=== PATIENT | male | born 1995 | race Caucasian/White ===

== ENCOUNTER 2018-11-06 16:30 | Emergency (ER) | payer SELFPAY ==
[2018-11-06] MEDS ORDERED: NORMAL SALINE 1000 ML 1,000 ML IV ONE (16:50)
[2018-11-06] MEDS ORDERED: ACETAMINOPHEN 325 MG TABLET PO ONE (16:50)
--- NOTE | 2018-11-06 16:51 | ER Document Report ---
ED Medical Screen (RME) - General Chief Complaint: Headache Stated Complaint: HEADACHE Time Seen by Provider: 11/06/18 16:46 Primary Care Provider: SUNIL HUBER [Primary Care Provider] - Follow up as needed Mode of Arrival: Ambulatory Information source: Patient Notes: Patient presents complaining of severe headache that started this morning. Patient states that headache is gradually gotten worse throughout the day. Patient reports nausea and vomiting x5 episodes. Patient denies any history of headaches. Patient denies any head injury. Patient denies any fever or history of IV drug use. I have greeted and performed a rapid initial assessment of this patient. A comprehensive ED assessment and evaluation of the patient, analysis of test results and completion of the medical decision making process will be conducted by additional ED providers. TRAVEL OUTSIDE OF THE [place] IN LAST 30 DAYS: No - Related Data Allergies/Adverse Reactions: No Known Allergies Allergy (Verified 11/06/18 16:30) Physical Exam - Neurological Neuro grossly intact: Yes Cognition: Normal Perry Coma Scale Eye Opening: Spontaneous Perry Coma Scale Verbal: Oriented Annamaria Coma Scale Motor: Obeys Commands Perry Coma Scale Total: 15 Doctor's Discharge - Discharge Referrals: SUNIL HUBER [Primary Care Provider] - Follow up as needed
[2018-11-06] MEDS ORDERED: DIPHENHYDRAMINE HCL 50 MG/ML VIAL IV ONE (17:43)
[2018-11-06] MEDS ORDERED: PROCHLORPERAZINE EDISYLATE INJ 10 MG/2 ML VIAL IV ONE (17:43)
[2018-11-06 17:51] VITALS: BP 131/74
--- NOTE | 2018-11-06 17:53 | ER Document Report ---
ED General - General Chief Complaint: Headache Stated Complaint: HEADACHE Time Seen by Provider: 11/06/18 16:46 Primary Care Provider: SUNIL HUBER [NO LOCAL MD] - Follow up as needed Mode of Arrival: Ambulatory TRAVEL OUTSIDE OF THE [place] IN LAST 30 DAYS: No - HPI Notes: Patient is a 23-year-old male no significant past medical history who presents complaining of severe headache that began at 9 AM when he woke up. Patient states that the pain was at maximal intensity from the start. Patient states that he has never had a headache like this before and this is the worst headache that he has experienced. He does have associated nausea/vomiting and light sensitivity. No recent illness. Patient states that he does have some stiffness to his neck as well. Denies drug allergies. Patient does admit to smoking but denies IV drug abuse. Denies any fever, head injury, changes in vision/speech/mentation/hearing, URI, sore throat, chest pain, palpitations, syncope, cough, shortness of breath, wheeze, dyspnea, abdominal pain, diarrhea, urinary retention, dysuria, hematuria, loss of control of bowel or bladder, numbness/tingling, saddle anesthesia, muscle paralysis/weakness, or rash. - Related Data Allergies/Adverse Reactions: No Known Allergies Allergy (Verified 11/06/18 16:30) Past Medical History - General Information source: Patient - Social History Smoking Status: Current Every Day Smoker Family History: Reviewed & Not Pertinent Patient has suicidal ideation: No Patient has homicidal ideation: No Review of Systems - Review of Systems -: Yes All other systems reviewed and negative Physical Exam - Vital signs Vitals: Temp Pulse Resp BP Pulse Ox 98.7 F 87 18 131/74 H 99 11/06/18 16:45 11/06/18 16:45 11/06/18 16:45 11/06/18 16:45 11/06/18 16:45 - Notes Notes: PHYSICAL EXAMINATION: GENERAL: Well-appearing, well-nourished and in no acute distress. A&Ox4. Answers questions appropriately. HEAD: Atraumatic, normocephalic. Non-tender. EYES: Pupils equal round and reactive to light, extraocular movements intact, sclera anicteric, conjunctiva are normal. No nystagmus. vis cast intact. ENT: EAC clear b/l. TM's intact b/l without erythema, fluid, or perforation. Nares patent and without discharge. oropharynx clear without exudates. No tonsilar hypertrophy or erythema. Moist mucous membranes. No sinus tenderness. NECK: FROM. + mild rigidity noted. + mild kernig. LUNGS: Breath sounds clear to auscultation bilaterally and equal. No wheezes rales or rhonchi. HEART: Regular rate and rhythm without murmurs, rubs, gallops. ABDOMEN: Soft, nontender, nondistended abdomen. No guarding, no rebound. Normal bowel sounds present. No CVA tenderness bilaterally. Musculoskeletal: Ext b/l: FROM to passive/active. Strength 5+/5. No deficits noted. No bony tenderness of extremities. Extremities: No cyanosis, clubbing, or edema b/l. Peripheral pulses 2+. Capillary refill less than 2 seconds. NEUROLOGICAL: NIH 0. GCS 15. Cranial nerves grossly intact. Normal speech, n ormal gait. Normal sensory, motor exams. Reflexes 2+ b/l. JAIME's negative. Pronator drift negative. Heel/joyce, finger/nose wnl. PSYCH: Normal mood, normal affect. SKIN: Warm, Dry, normal turgor, no rashes or lesions noted. Course - Re-evaluation Re-evalutation: 11/06/18 18:[address] Anderson as I have concern that he may need a LP performed due to the severe nature of the HAQUE, neck stiffness, and mildly elevated wbc and she is in agreement. 11/06/18 19:07 I have had multiple discussions with the patient trying to obtain consent to perform a lumbar puncture. My main concerns are meningitis and subarachnoid hemorrhage, but are not limited to these. I have thoroughly reviewed the risk and benefit including worsening symptoms, brain damage, debilitation, and even . I have reviewed the procedure in full and also discussed meeting with any anxiety with medications prior. Patient is still very adamant that he does not want this performed. Patient states that his headache has completely resolved. Vitals are otherwise acceptable without significant tachycardia, tachypnea, hypoxia. He is afebrile and well-hydrated. PE is otherwise unremarkable for any focal neurological deficits, but he did have some mild neck stiffness noted with a positive Kernig. This entire discussion was witnessed by his girlfriend who is sitting at the bedside. See lab results which did show a white count at 12.9. Other labs unremarkable. Reviewed with the patient that he is to return at anytime with worsening symptoms, for reassurance, or for any other reason if needed. I would like him to follow-up with a family doctor in the next 1-2 days if possible. Patient is in agreement. - Vital Signs Vital signs: Temp Pulse Resp BP Pulse Ox 98.7 F 87 18 131/74 H 99 11/06/18 16:45 11/06/18 16:45 11/06/18 16:45 11/06/18 16:45 11/06/18 16:45 - Laboratory Result Diagrams: 11/06/18 17:23 11/06/18 17:23 Laboratory results interpreted by me: 11/06/18 11/06/18 17:23 17:23 WBC 12.9 H RBC 4.21 L Hgb 13.4 L Absolute Neuts (auto) 9.1 H Chloride 97 L Discharge - Discharge Clinical Impression: Headache Qualifiers: Headache type: unspecified Headache chronicity pattern: acute headache Intractability: not intractable Qualified Code(s): R51 - Headache Condition: Stable Disposition: HOME, SELF-CARE Instructions: Headache ([facility]) Additional Instructions: As thoroughly reviewed with you and your significant other, you are electing to decline a procedure known as a lumbar puncture to further evaluate the cause of your headache and neck stiffness. The lumbar puncture would be very beneficial to evaluate further for any meningitis or even subarachnoid hemorrhage which is a significant brain bleed as well as other etiologies. Both conditions can lead to but not limited to worsening pain/debilitation, brain damage, and even . Do not hesitate to return for any reason at all whether it be reassurance, worsening symptoms, or for reevaluation. Rest, Ice/cool compress Tylenol as needed Light stretches daily Strength exercises as able Moist heat and massage may help F/u with your PCP in 1-2 days for a recheck Consider consult(s) with Neurology for ongoing/worsening symptoms Return to the ED with any worsening symptoms and/or development of fever, worsening headache/neck pain, changes in behavior/mentation/vision/speech, chest pain, palpitations, syncope, shortness of breath, trouble breathing, abdominal pain, n/v/d, blood in stool/urine, loss of control of bowel/bladder, urinary retention, muscle weakness/paralysis, saddle anesthesia, numbness/tingling, or other worsening symptoms that are concerning to you. Forms: Smoking Cessation Education, Elevated Blood Pressure Referrals: DIONNE FLORES MD [NO LOCAL MD] - Follow up as needed
--- NOTE | 2018-11-06 17:59 | RADIOLOGY REPORT (SQ) ---
EXAM DESCRIPTION: CT HEAD WITHOUT COMPLETED DATE/TIME: 11/06/2018 5:32 pm REASON FOR STUDY: severe HAQUE COMPARISON: None. TECHNIQUE: Axial images acquired through the brain without intravenous contrast. Images reviewed wi th bone, brain and subdural windows. Additional sagittal and coronal reconstructions were generated. Images stored on PACS. All CT scanners at this facility use dose modulation, iterative reconstruction, and/or weight based d osing when appropriate to reduce radiation dose to as low as reasonably achievable (ALARA). [facility]: Dose Right [facility]: CareDose [facility]: Dose Right [facility]: Teradose 4D [facility]: TapFit RADIATION DOSE: CT Rad equipment meets quality standard of care and radiation dose reduction techniq ues were employed. CTDIvol: 53.2 mGy. DLP: 964 mGy-cm. mGy. LIMITATIONS: None. FINDINGS: VENTRICLES: Normal size and contour. CEREBRUM: No masses. No hemorrhage. No midline shift. No evidence for acute infarction. Normal gra y/white matter differentiation. No areas of low density in the white matter. CEREBELLUM: No masses. No hemorrhage. No alteration of density. No evidence for acute infarction. EXTRAAXIAL SPACES: No fluid collections. No masses. ORBITS AND GLOBE: No intra- or extraconal masses. Normal contour of globe without masses. CALVARIUM: No fracture. PARANASAL SINUSES: No fluid or mucosal thickening. SOFT TISSUES: No mass or hematoma. OTHER: No other significant finding. IMPRESSION: NORMAL BRAIN CT WITHOUT CONTRAST. EVIDENCE OF ACUTE STROKE: NO. COMMENT: Quality ID # [id number]: Final reports with documentation of one or more dose reduction techniques (e.g., Automated exposure control, adjustment of the mA and/or kV according to patient size, use of iterative reconstruction technique) TECHNICAL DOCUMENTATION: JOB ID: [id number] [employer]- All Rights Reserved Reading location - IP/workstation name: [email or web address]
[2018-11-06 18:06] LABS: ABSOLUTE BASOPHILS # (AUTO) 0.1 10^3/uL (0.0-0.2); ABSOLUTE EOSINOPHILS # (AUTO) 0.2 10^3/uL (0.0-0.6); ABSOLUTE LYMPHOCYTES (AUTO) 2.6 10^3/uL (0.5-4.7); ABSOLUTE MONOCYTES (AUTO) 0.9 10^3/uL (0.1-1.4); ABSOLUTE NEUT (AUTO) 9.1 10^3/uL (1.7-8.2); BASOPHILS % (AUTO) 0.5 % (0-2); EOSINOPHILS % (AUTO) 1.4 % (0-6); HEMATOCRIT 39.8 % (37.9-51.0); HEMOGLOBIN 13.4 g/dL (13.5-17.0); LYMPHOCYTES % (AUTO) 20.5 % (13-45); MEAN CORPUSCULAR HEMOGLOBIN 31.9 pg (27.0-33.4); MEAN CORPUSCULAR HGB CONC 33.7 g/dL (32.0-36.0); MEAN CORPUSCULAR VOLUME 95 fl (80-97); MONOCYTES % (AUTO) 6.9 % (3-13); PLATELET COUNT 303 10^3/uL (150-450); RED BLOOD COUNT 4.21 10^6/uL (4.35-5.55); RED CELL DISTRIBUTION WIDTH 13.4 % (11.5-14.0); SEGMENTED NEUTROPHILS % (AUTO) 70.7 % (42-78); TOTAL CELLS COUNTED % (AUTO) 100 %; WHITE BLOOD COUNT 12.9 10^3/uL (4.0-10.5)
[2018-11-06 18:08] LABS: ALBUMIN 4.5 g/dL (3.5-5.0); ALKALINE PHOSPHATASE 66 U/L (38-126); ANION GAP 10 (5-19); ASPARTATE AMINO TRANSFERASE 26 U/L (17-59); BILIRUBIN,DIRECT 0.2 mg/dL (0.0-0.4); BILIRUBIN,TOTAL 0.4 mg/dL (0.2-1.3); BLOOD UREA NITROGEN 14 mg/dL (7-20); CALCIUM 9.4 mg/dL (8.4-10.2); CARBON DIOXIDE 30 mmol/L (22-30); CHLORIDE 97 mmol/L (98-107); GLUCOSE 95 mg/dL (75-110); INTERNATIONAL RATION (INR) 1.06; POTASSIUM 4.4 mmol/L (3.6-5.0); PROTHROMBIN TIME 13.8 SEC (11.4-15.4); TOTAL PROTEIN 6.8 g/dL (6.3-8.2)
[2018-11-06 18:09] LABS: PARTIAL THROMBOPLASTIN TIME 31.7 SEC (23.5-35.8)
== END 2018-11-06 20:02 | disposition home or self-care (01) ==
LOC: ER 16:30
DX: R51 Headache (principal); R11.2 Nausea with vomiting, unspecified; M43.6 Torticollis; F17.200 Nicotine dependence, unspecified, uncomplicated
CPT/HCPCS: 99284; 96361; 96374; 96375; 36415; 85025; 85610; 85730; 80053; 70450; J1200; J0780; J7030

== ENCOUNTER 2019-03-12 08:39 | Emergency (ER) | payer SELFPAY ==
[2019-03-12 08:49] VITALS: BP 137/75
[2019-03-12] MEDS ORDERED: METOCLOPRAMIDE HCL 10 MG TABLET PO ONE (09:31)
--- NOTE | 2019-03-12 09:34 | ER Document Report ---
HPI - HPI Time Seen by Provider: 03/12/19 09:26 Pain Level: 3 Notes: Patient is a 23-year-old male with no significant past medical history who presents to the ED complaining of nasal congestion/discharge (4 days), dry nonproductive cough, fever, body ache 1-2 days. He did have 1-2 episodes of vomiting this morning. Patient states that he is still eating and drinking without difficulties, but does have a decreased p.o. intake. He is still urinating normally having normal bowel movements. Patient has been using some [id number] meds for symptoms. He denies any significant past medical history including cardiopulmonary history and immunocompromised conditions. Patient requesting work note. Denies any current headache, neck pain, sore throat, chest pain, palpitations, syncope, shortness of breath, wheeze, dyspnea, abdominal pain, diarrhea, urinary retention, dysuria, hematuria, or rash. - ROS Systems Reviewed and Negative: Yes All other systems reviewed and negative - REPRODUCTIVE Reproductive: DENIES: : Past Medical History - Social History Smoking Status: Current Every Day Smoker Chew tobacco use (# tins/day): No Frequency of alcohol use: None Drug Abuse: None Family History: Reviewed & Not Pertinent Patient has suicidal ideation: No Patient has homicidal ideation: No Vertical Provider Document - CONSTITUTIONAL Agree With Documented VS: Yes Notes: PHYSICAL EXAMINATION: GENERAL: Well-appearing, well-nourished and in no acute distress. A&Ox4. Answers questions appropriately. Moves comfortably w/o notable distress HEAD: Atraumatic, normocephalic. EYES: Pupils equal round and reactive to light, extraocular movements intact, sclera anicteric, conjunctiva are normal. ENT: EAC clear b/l. TM's intact b/l without erythema, fluid, or perforation. Nares patent and with clear discharge. oropharynx no erythema without exudates. No tonsilar hypertrophy without erythema or exudate. No palatine shift. Uvula midline. No tongue protrusion. No drooling, hoarseness, or airway compromise. Moist mucous membranes. No sinus tenderness. NECK: Normal range of motion, supple without lymphadenopathy. No rigidity/meningismus. LUNGS: Breath sounds clear to auscultation bilaterally and equal. No wheezes rales or rhonchi. No retractions HEART: Regular rate and rhythm without murmurs, rubs, gallops. ABDOMEN: Soft, nontender, nondistended abdomen. No guarding, no rebound. Normal bowel sounds present. No CVA tenderness bilaterally. NEUROLOGICAL: Normal speech, normal gait. PSYCH: Normal mood, normal affect. SKIN: Warm, Dry, normal turgor, no rashes or lesions noted. - INFECTION CONTROL TRAVEL OUTSIDE OF THE [place] IN LAST 30 DAYS: No Course - Re-evaluation Re-evalutation: 03/12/19 09:32 Patient is an afebrile, well-hydrated, 30-year-old male who presents to the ED with acute URI, suspect viral/influenza. Vitals are acceptable. PE is otherwise unremarkable. No labs or imaging warranted at this time based on H&P. Patient has no significant cardiopulmonary or immunocompromised medical conditions. Patient's lungs are clear to auscultation bilaterally without tachycardia, hypoxia, or tachypnea. Patient is tolerating p.o. without any difficulties. Thoroughly reviewed the risks, benefits, potential side effects, estimated cost without insurance with patient. After thorough review, patient declined Tamiflu at this time. Low suspicion for any meningitis, sepsis, peritonsillar/pharyngeal abscess, respiratory compromise, severe dehydration, or other emergent systemic condition at this time. Patient is aware this condition can change from initial presentation and he needs to monitor symptoms closely. Rx for reglan with one dose given here. Conservative measures otherwise for symptoms. Recheck with your PCM in 3-5 days. Return to the ED with any worsening/concerning symptoms otherwise as reviewed in discharge. Patient is in agreement. - Vital Signs Vital signs: Temp Pulse Resp BP Pulse Ox 99.8 F 92 16 137/75 H 95 03/12/19 08:44 03/12/19 08:44 03/12/19 08:44 03/12/19 08:44 03/12/19 08:44 Discharge - Discharge Clinical Impression: Acute URI Condition: Stable Disposition: HOME, SELF-CARE Instructions: Upper Respiratory Illness ([facility]) Additional Instructions: Maintain adequate fluid intake tylenol/ibuprofen as needed alternating every 3 hours for fever/body ache over the counter cold medication as needed for symptoms Humidified air may help Wash your hands regularly Wear a mask when coughing F/u: with your PCM in 2-3 days for a recheck Return to the ED with any fever, altered mental status/behavior, chest pain, palpitations, syncope, headache, neck pain/stiffness, shortness of breath, chest pains, wheezing, drooling, trouble swallowing/breathing, abdominal pain, n/v/d, rash, or worsening/concerning symptoms otherwise. Prescriptions: Metoclopramide HCl [Reglan] 10 mg PO BID PRN #6 tablet PRN Reason: Forms: Return to Work, Smoking Cessation Education, Elevated Blood Pressure Referrals: [facility] [Provider Group] - Follow up as needed
== END 2019-03-12 09:43 | disposition home or self-care (01) ==
LOC: ER 08:39
DX: J06.9 Acute upper respiratory infection, unspecified (principal); R09.81 Nasal congestion; R09.89 Other specified symptoms and signs involving the circulatory and respiratory systems; R05 Cough; R50.9 Fever, unspecified; R52 Pain, unspecified; R11.10 Vomiting, unspecified; F17.200 Nicotine dependence, unspecified, uncomplicated
CPT/HCPCS: 99282

== ENCOUNTER 2019-07-29 01:31 | Emergency (ER) | payer SELFPAY ==
[2019-07-29] MEDS ORDERED: PROMETHAZINE HCL 25 MG TABLET PO ONE (02:04)
[2019-07-29] MEDS ORDERED: OXYCODONE HCL IR 5 MG TABLET PO ONE (02:04)
[2019-07-29] MEDS ORDERED: IBUPROFEN 600 MG TABLET PO ONE (02:06)
--- NOTE | 2019-07-29 02:06 | ER Document Report ---
HPI - HPI Time Seen by Provider: 07/29/19 01:58 Pain Level: 5 Context: Patient is a 24-year-old male that comes to the emergency department for chief complaint of injury to his left fifth toe. He states he accidentally kicked a coffee table around 6 PM. He states swelling and pain is only worsened and his toe started becoming purple so he became concerned and came in for evaluation. He denies any other injuries. He denies any daily medications. He denies any diagnosed medical history. - CONSTITUTIONAL Constitutional: DENIES: Fever, Chills - REPRODUCTIVE Reproductive: DENIES: : - MUSCULOSKELETAL Musculoskeletal: REPORTS: Extremity pain - lt foot Past Medical History - General Information source: Patient - Social History Smoking Status: Current Every Day Smoker Chew tobacco use (# tins/day): No Frequency of alcohol use: None Drug Abuse: None Lives with: Family Family History: Reviewed & Not Pertinent Patient has homicidal ideation: No - Medical History Medical History: Negative Surgical Hx: Negative - Immunizations Immunizations up to date: Yes Hx Diphtheria, Pertussis, Tetanus Vaccination: Yes Vertical Provider Document - CONSTITUTIONAL General Appearance: WD/WN. negative: No Apparent Distress - Patient appears mildly uncomfortable but is not in severe distress - INFECTION CONTROL TRAVEL OUTSIDE OF THE [place] IN LAST 30 DAYS: No - HEENT HEENT: Atraumatic, Normocephalic - NECK Neck: Normal Inspection - RESPIRATORY Respiratory: Breath Sounds Normal, No Respiratory Distress - CARDIOVASCULAR Cardiovascular: Regular Rate, Regular Rhythm - GI/ABDOMEN Gastrointestinal: Abdomen Soft, Abdomen Non-Tender. negative: Abdomen Tender - BACK Back: Normal Inspection - MUSCULOSKELETAL/EXTREMETIES Musculoskeletal/Extremeties: MAEW, FROM, Tender - There is ecchymosis and minimal soft tissue swelling to the left fifth digit dorsally, there is no injury to the nail, there is no obvious deformity. Capillary refill and sensation are intact, range of motion is intact, remaining foot exam is generally unremarkable. Normal ankle, leg exam otherwise. - NEURO Level of Consciousness: Awake, Alert, Appropriate Motor/Sensory: No Motor Deficit, No Sensory Deficit - DERM Integumentary: Warm, Dry, No Rash Course - Re-evaluation Re-evalutation: X-ray negative, discussed with patient, provided with crutches, provided work release, discussed follow-up and return precautions. Patient states understand ing and agreement. - Vital Signs Vital signs: Temp Pulse Resp BP Pulse Ox 98.5 F 86 14 136/59 H 96 07/29/19 01:39 07/29/19 01:36 07/29/19 01:36 07/29/19 01:36 07/29/19 01:36 - Diagnostic Test Radiology reviewed: Image reviewed, Reports reviewed Discharge - Discharge Clinical Impression: Injury of left foot Qualifiers: Encounter type: initial encounter Qualified Code(s): S99.922A - Unspecified injury of left foot, initial encounter Toe contusion Qualifiers: Encounter type: initial encounter Toe: lesser toe Damage to nail status: without damage Laterality: left Qualified Code(s): S90.122A - Contusion of left lesser toe(s) without damage to nail, initial encounter Condition: Stable Disposition: HOME, SELF-CARE Additional Instructions: Your x-ray does not show a fracture or dislocation. Your exam and work-up do indicate soft tissue swelling and the contusion of your toe but no other concerning findings. I recommend that you elevate as much as possible, ice 3-4 times a day for 10 to 15 minutes, take the anti-inflammatory as prescribed, and use the crutches if needed. Resume normal activity when symptoms resolve. Follow-up with primary care. Return for any concerning symptoms including severe worsening swelling or pain. Prescriptions: Naproxen 500 mg PO BID PRN #20 tablet PRN Reason: Forms: Return to Work
--- NOTE | 2019-07-29 02:24 | RADIOLOGY REPORT (SQ) ---
EXAM DESCRIPTION: XR FOOT 3 OR MORE VIEWS COMPLETED DATE/TME: 07/29/2019 00:00 CLINICAL HISTORY: 24 years Male, pain to 5th toe COMPARISON: None. Findings: Bones, joints, and soft tissues of the LEFT XR FOOT 3 OR MORE VIEWS appear intact. IMPRESSION: No acute findings.
[2019-07-29 04:42] VITALS: BP 121/43
== END 2019-07-29 04:47 | disposition home or self-care (01) ==
LOC: ER 01:31
DX: S99.922A Unspecified injury of left foot, initial encounter (principal); S90.122A Contusion of left lesser toe(s) without damage to nail, initial encounter; W22.03XA Walked into furniture, initial encounter; F17.200 Nicotine dependence, unspecified, uncomplicated; M79.672 Pain in left foot
CPT/HCPCS: 99283